=== PATIENT | male | born 1965 | race Caucasian/White ===

== ENCOUNTER 2021-02-12 13:19 | Emergency (ER) | payer MEDICAID ==
[~2021-02-12] VITALS: Ht 172.7 cm; Wt 65.8 kg
[2021-02-12] MEDS ORDERED: DELSYM30 MG/5 ML PO (15:43)
== END 2021-02-12 15:57 | disposition home or self-care (01) ==
LOC: ER1 13:19
DX: Z23 Encounter for immunization (principal); U07.1 COVID-19; F17.220 Nicotine dependence, chewing tobacco, uncomplicated
CPT/HCPCS: 87081; 87880; 99283; M0243; U0002